=== PATIENT | female | born 1985 | race Caucasian/White ===

== ENCOUNTER 2017-01-21 09:14 | Emergency (ER) | payer OTHER ==
[2017-01-21] MEDS ORDERED: HYDROmorphone 1 MG/ML Syringe IVPUSH ONE (10:30)
[2017-01-21] MEDS ORDERED: Clindamycin Phosphate 600 MG in Sodium Chloride 0.9% 100 ML IV ONE (10:30)
[2017-01-21] MEDS ORDERED: Sodium Chloride 0.9% 10 ML Syringe FLUSH PRN (10:30)
[2017-01-21] MEDS ORDERED: Metoclopramide 10 MG/2 ML SDV IVPUSH ONE (10:31)
--- NOTE | 2017-01-21 10:35 | EDM.PDOC ---
ED HPI ENT - General Chief Complaint: ENT Problem Stated Complaint: FACIAL SWELLING AND PAIN NOT BETTER Time Seen by Provider: 01/21/17 10:15 Source of Information: Reports: Patient History Limitations: Reports: No limitations - History of Present Illness INITIAL COMMENTS - FREE TEXT/NARRATIVE: 31-year-old female presents the ED for reassessment of left kylah-facial swelling. She was seen to the ED yesterday and identified to be dental infection arising from her left upper canine tooth which is broken off even with the gingiva margin. She was given a shot of Rocephin intramuscularly and started on Pen-Vee K 4 times daily and is on Percocet tablets for pain relief. That finding the pain relief to be all that effective. She's taking 2 tablets every 6 hours with Motrin 600 mg every 6 hours as well. Left facial pain is perhaps a little worse today than it was yesterday. No associated fever or chills. Of course can't eat or chew on the left side. Symptom Onset Date: 01/18/17 Timing/Duration: Reports: Day(s):, Getting worse, Gradual onset Severity: moderate Location: Reports: mouth (pain left upper teeth mostly the canine teeth and swelling of the left kylah-face.) Quality: Reports: Same as previous episode Improves with: Reports: Medication (medication takes the edge off the pain) Worsens with: Reports: Other (22.) Associated Symptoms: Reports: no other symptoms, malaise, loss of appetite, other (right hemifacial pain.). 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 Denies : fever, chills, weight loss (hardly able to sleep last night due to the severity of a throbbing pain in her left face.) HEENT: Reports: Dental pain (left upper canine tooth.), Ear pain (left side) Respiratory: Reports: no symptoms Cardiovascular: Reports: No symptoms Endocrine: Reports: no symptoms GI/Abdominal: Reports: No symptoms : Reports: no symptoms Musculoskeletal: Reports: no symptoms Skin: Reports: no symptoms Neurological: Reports: no symptoms ED EXAM, ENT - Physical Exam Exam: See Below Exam Limited By: No limitations General Appearance: alert, mild distress, other (left kylah-face is erythematous and moderately swollen to her eye.) Eye Exam: bilateral eye: normal inspection, PERRL Ears: normal TMs Mouth/Throat: Dental pain (pain in infection and appears to be coming from the broken off canine tooth at the gingiva margin left upper. The gingiva around it are mildly swollen and erythematous. No purulent discharge appreciated note abscess noted.) Head: facial swelling (left kylah-facial swelling with erythema and marked tenderness. It is swollen from the lateral aspect of her nose to the edge of the mandible and almost up to her eye on the left side.) Neck: normal inspection, supple, non-tender, full range of motion. No: lymphadenopathy (L), lymphadenopathy (R) Respiratory/Chest: no respiratory distress, lungs clear, normal breath sounds, no accessory muscle use Cardiovascular: normal peripheral pulses, regular rate, rhythm, no edema, no murmur Course - Vital Signs Last Recorded V/S: Last Vital Signs Temp 35.9 C 01/21/17 09:33 Pulse 84 01/21/17 12:13 Resp 16 01/21/17 12:13 BP 128/80 01/21/17 12:13 Pulse Ox 98 01/21/17 12:13 - Orders/Labs/Meds Orders: Active Orders 24 hr Category Date Time Status Peripheral IV Care [RC] . DIRECTED Care 01/21/17 10:30 Active Ketorolac [Toradol] Med 01/21/17 10:45 Active 30 mg IVPUSH ONETIME Sodium Chloride 0.9% [Saline Flush] Med 01/21/17 10:30 Active 10 ml FLUSH ASDIRECTED PRN Peripheral IV Insertion Adult [OM.PC] Stat Oth 01/21/17 10:30 Ordered Medication Orders Ketorolac Tromethamine (Toradol) 30 mg IVPUSH ONETIME ANDRÉS Last Admin: 01/21/17 11:07 Dose: 30 mg Sodium Chloride (Saline Flush) 10 ml FLUSH ASDIRECTED PRN PRN Reason: Keep Vein Open Last Admin: 01/21/17 10:55 Dose: 10 ml Meds: Medications Generic Name Dose Route Start Last Admin Trade Name Freq PRN Reason Stop Dose Admin Ketorolac Tromethamine 30 mg 01/21/17 10:45 01/21/17 11:07 Toradol IVPUSH 30 mg ONETIME ANDRÉS Administration Sodium Chloride 10 ml 01/21/17 10:30 01/21/17 10:55 Saline Flush FLUSH 10 ml ASDIRECTED PRN Administration Keep Vein Open Discontinued Medications Generic Name Dose Route Start Last Admin Trade Name Freq PRN Reason Stop Dose Admin Hydromorphone HCl 1 mg 01/21/17 10:30 01/21/17 10:50 Dilaudid IVPUSH 01/21/17 10:31 1 mg ONETIME ONE Administration Clindamycin Phosphate 600 mg/ 104 mls @ 100 mls/hr 01/21/17 10:30 01/21/17 10 :54 Sodium Chloride IV 01/21/17 11:32 100 mls/hr ONETIME ONE Administration Metoclopramide HCl 10 mg 01/21/17 10:31 01/21/17 10:48 Reglan IVPUSH 01/21/17 10:32 10 mg ONETIME ONE Administration - Radiology Interpretation Free Text/Narrative:: 31-year-old female presents to the ED with a dental infection that has spread to her face. She was seen yesterday for similar occurrence. She reports it's no better in fact seems to be a bit worse. She did receive Rocephin 1 g intramuscularly and started on Pen-Vee K 4 times daily yesterday. Examination the source of infection appears to be broken off left I. and tooth which is broken off even with the gingiva margin. Plan on going to give her IV clindamycin 600 mg in the plan will be to clindamycin orally to her treatment plan with Pen-Vee K to bring this infection under control. We will also her pain medications so that she's taking Percocet about every 3-4 hours and Motrin every 6 hours. She's not getting much relief taking Percocet every 6 hours.she was prescribed 20 tablets yesterday. - Re-Assessments/Exams Free Text/Narrative Re-Assessment/Exam: 01/21/17 12:17patient has completed her IV clindamycin. Pain is much improved after IV Dilaudid and Toradol. She was given a prescription for clindamycin 300 mg 3 times a day for the next 7 days to add to her Pen-Vee K treatment. Percocet 10/ 325 mg tablets x12 were written for pain relief since she's not finding 5-25 mg tablets useful in terms of controlling the pain.she plans on following up with a dentist in [place] tomorrow. I suspect however that she didn' t will need referral to an oral surgeon since the tooth is broken off of the gingiva margin. Departure - Departure Time of Disposition: 11:48 Disposition: Home, Self-Care 01 Condition: fair Clinical Impression: Dental infection, Facial cellulitis Prescriptions: Clindamycin HCl 300 mg PO TID #21 capsule oxyCODONE HCl/Acetaminophen [Percocet 10-325 mg Tablet] 1 each PO BTNUNITS PRN # 12 tablet PRN Reason: dental pain relief Instructions: Dental Abscess, [id number], Cellulitis, Adult, [id number] Referrals: Ivana Huynh MD [Primary Care Provider] - Forms: ED Department Discharge Additional Instructions: reevaluation in the emergency room today in regards to dental infection with spread to the soft tissues of the left side of the face. We call this facial cellulitis. Upper tooth appears to be the left upper canine which is broken off even with the gingiva margin. Due to minimal response to intramuscular Rocephin yesterday and Pen-Vee K orally in the last 24 hours she were given clindamycin 600 mg intravenously today as well as further pain medication i.e. Dilaudid a milligram with Reglan 10 mg IV and Toradol 30 mg IV for pain relief. Treatment will now add clindamycin 300 mg antibiotic 3 times daily for the next 7 days to help clear up infection. Continue the Pen-Vee K as previously prescribed. Continue 600 mg of Motrin every 6 hours for pain and inflammation relief. Percocet 2 tablets every 3-4 hours as necessary for pain relief. I did also write a prescription for Percocet 10 325 mg tablets one tablet every 4 hours needed for pain relief.Followup with dentist within the next week to have the root of this tooth removed. This may well have to be done by oral surgeon in [place]. I would suggest you phone Dr. Monroy --face and jaw surgeon at . He to call tomorrow morning an appointment later this week looks like Sunday would be suitable to have the root of this tooth removed so that the infection cannot return. - My Orders Last 24 Hours: My Active Orders 01/21/17 10:30 Peripheral IV Care [RC] . DIRECTED Sodium Chloride 0.9% [Saline Flush] 10 ml FLUSH ASDIRECTED PRN Peripheral IV Insertion Adult [OM.PC] Stat 01/21/17 10:45 Ketorolac [Toradol] 30 mg IVPUSH ONETIME - Assessment/Plan Last 24 Hours: My Active Orders 01/21/17 10:30 Peripheral IV Care [RC] . DIRECTED Sodium Chloride 0.9% [Saline Flush] 10 ml FLUSH ASDIRECTED PRN Peripheral IV Insertion Adult [OM.PC] Stat 01/21/17 10:45 Ketorolac [Toradol] 30 mg IVPUSH ONETIME
[2017-01-21] MEDS ORDERED: Ketorolac 30 MG/ML SDV IVPUSH SCH (10:45)
[2017-01-21 12:15] VITALS: BP 128/80
== END 2017-01-21 12:00 | disposition home or self-care (01) ==
LOC: JD.ED 09:14
DX: K04.7 Periapical abscess without sinus (principal); L03.211 Cellulitis of face; F17.210 Nicotine dependence, cigarettes, uncomplicated; Z79.899 Other long term (current) drug therapy
CPT/HCPCS: 96365; 96375; 99283; J1170; J1885; J2765; J7030; J7050; 99284

== ENCOUNTER 2018-02-06 11:51 | Day surgery (SDC) | payer SELFPAY ==
[~2018-02-06 11:51] MED LIST: Sodium Chloride 0.9% 10 ML Syringe FLUSH PRN
[2018-02-06] MEDS ORDERED: Sodium Chloride 0.9% 50 ML SDV ONE (12:10)
[2018-02-06] MEDS: Lidocaine 1%/Sod Bicarbonate in NS 8.4% 1 ML Syringe IDERM PRN (12:14)
[2018-02-06] MEDS: Lactated Ringers 1,000 ML IV SCH (12:30)
[2018-02-06] MEDS ORDERED: Lidocaine 1% 50 ML MDV ONE (12:33)
--- NOTE | 2018-02-06 12:40 | PCM.PREANE ---
Preanesthetic Assessment - Procedure Proposed Procedure: Anoscopy with botox injection - Anesthesia/Transfusion/Family Hx Anesthesia History: Prior Anesthesia Without Reaction Family History of Anesthesia Reaction: No Transfusion History: No Prior Transfusion(s) - Review of Systems General: No Symptoms Pulmonary: No Symptoms Cardiovascular: No Symptoms Gastrointestinal: No Symptoms Neurological: No Symptoms Other: Reports: None - Physical Assessment NPO Status Date: 02/06/18 NPO Status Time: 02:00 Pulse: 87 O2 Sat by Pulse Oximetry: 97 Respiratory Rate: 16 Blood Pressure: 142/83 Temperature: 36.8 C Height: 1.55 m Weight: 121 kg ASA Class: 2 Mental Status: Alert & Oriented x3 Airway Class: Mallampati = 2 Dentition: Reports: Normal Dentition Thyro-Mental Finger Breadths: 3 Mouth Opening Finger Breadths: 3 ROM/Head Extension: Full Lungs: Clear to Auscultation, Normal Respiratory Effort Cardiovascular: Regular Rate, Regular Rhythm - Allergies Allergies/Adverse Reactions: Allergies Allergy/AdvReac Type Severity Reaction Status Date / Time No Known Allergies Allergy Verified 02/05/18 15:30 - Blood Blood Available: No Product(s) Available: None - Anesthesia Plan Pre-Op Medication Ordered: None - Acknowledgements Anesthesia Type Planned: MAC Pt an Appropriate Candidate for the Planned Anesthesia: Yes Alternatives and Risks of Anesthesia Discussed w Pt/Guardian: Yes Pt/Guardian Understands and Agrees with Anesthesia Plan: Yes PreAnesthesia Questionnaire HEENT History: Reports: Impaired Vision Cardiovascular History: Reports: None Respiratory History: Reports: None Gastrointestinal History: Reports: Hemorrhoids Genitourinary History: Reports: None 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 Other OB/BYN History: x 2 - d&c Musculoskeletal History: Reports: None Neurological History: Reports: None Psychiatric History: Reports: None Endocrine/Metabolic History: Reports: Diabetes, Gestational Hematologic History: Reports: None Immunologic History: Reports: None Oncologic (Cancer) History: Reports: None Dermatologic History: Reports: None - Past Surgical History Head Surgeries/Procedures: Reports: None Cardiovascular Surgical History: Reports: None Respiratory Surgical History: Reports: None GI Surgical History: Reports: Cholecystectomy Female Surgical History: Reports: Section, D&C Male Surgical History: Reports: None Endocrine Surgical History: Reports: None Neurological Surgical History: Reports: None Musculoskeletal Surgical History: Reports: None Oncologic Surgical History: Reports: None Dermatological Surgical History: Reports: None - SUBSTANCE USE Smoking Status *Q: Current Every Day Smoker Tobacco Use Within Last Twelve Months: Cigarettes Recreational Drug Use History: No - HOME MEDS Home Medications: Home Meds Acetaminophen [Tylenol] 650 mg PO Q4H PRN 02/05/18 [History] Ibuprofen 600 mg PO Q6H PRN 02/05/18 [History] - CURRENT (IN HOUSE) MEDS Current Meds: Current Medications Botulinum Toxin Type A (Botox) 100 units .XX ONETIME ANDRÉS Stop: 02/06/18 13:00 Lactated Ringer's (Ringers, Lactated) 1,000 mls @ 125 mls/hr IV ASDIRECTED ANDRÉS Lidocaine/Sodium Bicarbonate (Buffered Lidocaine 1% In Ns 8.4%) 0.25 ml IDERM ONETIME PRN PRN Reason: Prior to IV Start Sodium Chloride (Saline Flush) 10 ml FLUSH ASDIRECTED PRN PRN Reason: Keep Vein Open Discontinued Medications Fentanyl (Sublimaze) Confirm Administered Dose 100 mcg .ROUTE .STK-MED ONE Stop: 02/06/18 12:44 Lidocaine HCl (Xylocaine-Mpf 1%) Confirm Administered Dose 4 mls @ as directed .ROUTE .STK-MED ONE Stop: 02/06/18 12:46 Midazolam HCl (Versed 1 Mg/Ml) Confirm Administered Dose 2 mg .ROUTE .STK-MED ONE Stop: 02/06/18 12:44 Propofol (Diprivan 20 Ml) Confirm Administered Dose 200 mg .ROUTE .STK-MED ONE Stop: 02/06/18 12:44 Sodium Chloride (Normal Saline) Confirm Administered Dose 50 ml .ROUTE .STK-MED ONE Stop: 02/06/18 12:11
[2018-02-06] MEDS ORDERED: Midazolam 1 MG/ML 2 ML SDV ONE (12:43)
[2018-02-06] MEDS ORDERED: fentaNYL 100 MCG/2 ML SDV ONE (12:43)
[2018-02-06] MEDS ORDERED: Propofol 200 MG/20 ML SDV ONE (12:43)
[2018-02-06] MEDS ORDERED: Lidocaine 1% 4 ML ONE (12:45)
[2018-02-06] MEDS: Bupivacaine 0.5% 30 ML SDV ONE (13:02)
--- NOTE | 2018-02-06 13:22 | PCM48HPAN ---
Post Anesthesia Note - EVALUATION WITHIN 48HRS OF ANESTHETIC Vital Signs in Normal Range: Yes Patient Participated in Evaluation: Yes Respiratory Function Stable: Yes Airway Patent: Yes Cardiovascular Function Stable: Yes Hydration Status Stable: Yes Pain Control Satisfactory: Yes Nausea and Vomiting Control Satisfactory: Yes Mental Status Recovered: Yes Pulse Rate: 89 SaO2: 97 Resp Rate: 16 Temperature: 36.8 C Blood Pressure: 133/89
--- NOTE | 2018-02-06 13:23 | PCM.OPNOTE ---
- General Post-Op/Procedure Note Date of Surgery/Procedure: 02/06/18 Operative Procedure(s): 1. Diagnostic anoscopy. 2. Botox injection Findings: Deep posterior anal fissure Anterior anal tag No hemorrhoids Pre Op Diagnosis: Painful defecation with rectal bleeding Post-Op Diagnosis: Chronic posterior anal fissure Anesthesia Technique: Local, MAC, Moderate Sedation Primary Surgeon: Freedom Kelly Pathology: None EBL in mLs: 0 Complications: None Condition: Good Free Text/Narrative:: After adequate IV sedation and analgesia with monitoring the patient was placed in the prone jackknife position with her buttocks taped. The perianal region was prepped with Betadine and then draped with paper drapes. 10 mL of Sensorcaine was infused into the perianal skin. Digital rectal examination revealed a spastic internal sphincter. Anoscopy revealed the deep posterior anal fissure through the muscle. There were no significant hemorrhoids seen on anoscopy. There was no anterior fissure. There was a small anterior anal tag. 40 units of Botox was injected into the left lateral aspect of the internal sphincter. Another 40 units was injected into the right lateral aspect. Hemostasis was obtained with direct pressure. There were no complications.
[2018-02-06 14:07] VITALS: BP 145/68
== END 2018-02-06 14:05 | disposition home or self-care (01) ==
LOC: JD.SDS 11:51
PROVIDERS: ATTEND Surgery
DX: K60.1 Chronic anal fissure (principal); K64.4 Residual hemorrhoidal skin tags; N91.1 Secondary amenorrhea; F17.210 Nicotine dependence, cigarettes, uncomplicated
CPT/HCPCS: 46505; 81025; J0585; J2250; J3010; J7120; 00902; J2704

== ENCOUNTER 2018-05-06 19:51 | Emergency (ER) | payer MEDICAID ==
[2018-05-06 20:09] VITALS: BP 143/92
[2018-05-06] MEDS ORDERED: Sodium Chloride 0.9% 10 ML Syringe FLUSH PRN (20:28)
[2018-05-06] MEDS ORDERED: Ondansetron 4 MG/2 ML SDV IVPUSH ONE (20:28)
[2018-05-06] MEDS ORDERED: Sodium Chloride 0.9% 1,000 ML IV STA (20:28)
[2018-05-06] MEDS ORDERED: HYDROmorphone 0.5 MG/0.5 ML SYRINGE IVPUSH ONE ×2 (20:30→22:06)
--- NOTE | 2018-05-06 20:46 | EDM.PDOC ---
ED HPI GENERAL MEDICAL PROBLEM - General Chief Complaint: Abdominal Pain Stated Complaint: BACK AND ABDOMINAL PAIN Time Seen by Provider: 05/06/18 20:10 Source of Information: Reports: Patient History Limitations: Reports: No Limitations - History of Present Illness INITIAL COMMENTS - FREE TEXT/NARRATIVE: The patient presents with abdominal pain that radiates to the back. This pain has been going on for over a month. She has seen her doctor. She had an US of her pelvis and a CT. The CT showed a 4cm adrenal mass on the left. She is scheduled for an MRI in 2 days. She has way more pain now. When I went into the room her pain was more on the right lower quadrant. She said this pain radiated to her right back. She had nausea but no vomiting. She has no fever but she has chills. She has no dysuria or hematuria. She has never had kidney stones before. She said the pain before today would never go away but it would get better and then worse again. She was at the gym today walking and that made it worse and she went on the bike and that made it even worse. She says that eating makes it worse. She does not have a gallbladder. That was removed a few years ago. She still has an appendix. Onset: Gradual Duration: Week(s): (4) Location: Reports: Abdomen, Back Quality: Reports: Sharp Severity: Severe Improves with: Reports: None Worsens with: Reports: None Associated Symptoms: Reports: Nausea/Vomiting. Denies: Chest Pain, Cough, Fever /Chills, Headaches, Shortness of Breath Abdomen Pain Score (Numeric/FACES): 7 - Related Data Allergies Allergy/AdvReac Type Severity Reaction Status Date / Time No Known Allergies Allergy Verified 05/06/18 20:09 Home Meds: Home Meds Acetaminophen [Tylenol] 650 mg PO Q4H PRN 02/05/18 [History] Ibuprofen 600 mg PO Q6H PRN 02/05/18 [History] metFORMIN [Glucophage XR] 1 tab PO DAILY 05/06/18 [History] Past Medical History HEENT History: Reports: Impaired Vision Cardiovascular History: Reports: None Respiratory History: Reports: None Gastrointestinal History: Reports: Hemorrhoids Genitourinary History: Reports: None RADIOGRAPHER ANGIOGRAM History: Reports: Spontaneous Other OB/BYN History: x 2 - d&c Musculoskeletal History: Reports: None Neurological History: Reports: None Psychiatric History: Reports: None Endocrine/Metabolic History: Reports: Diabetes, Gestational, Diabetes, Type II Hematologic History: Reports: None Immunologic History: Reports: None Oncologic (Cancer) History: Reports: None Dermatologic History: Reports: None - Past Surgical History Head Surgeries/Procedures: Reports: None Cardiovascular Surgical History: Reports: None Respiratory Surgical History: Reports: None GI Surgical History: Reports: Cholecystectomy Female Surgical History: Reports: Section, D&C Endocrine Surgical History: Reports: None Neurological Surgical History: Reports: None Musculoskeletal Surgical History: Reports: None Oncologic Surgical History: Reports: None Dermatological Surgical History: Reports: None Social & Family History - Family History Family Medical History: Noncontributory - Tobacco Use Smoking Status *Q: Current Every Day Smoker Years of Tobacco use: 15 Packs/Tins Daily: 1 - Caffeine Use Caffeine Use: Reports: Soda - Recreational Drug Use Recreational Drug Use: No ED ROS GENERAL - Review of Systems Review Of Systems: See Below Constitutional: Reports: No Symptoms HEENT: Reports: No Symptoms Respiratory: Reports: No Symptoms Cardiovascular: Reports: No Symptoms Endocrine: Reports: No Symptoms GI/Abdominal: Reports: Abdominal Pain, Nausea, Vomiting. Denies: Diarrhea : Reports: No Symptoms Musculoskeletal: Reports: Back Pain Skin: Reports: No Symptoms ED EXAM, GI/ABD - Physical Exam Exam: See Below Exam Limited By: No Limitations General Appearance: Alert, No Apparent Distress Ears: Normal External Exam Nose: Normal Inspection Head: Atraumatic, Normocephalic Neck: Normal Inspection Respiratory/Chest: No Respiratory Distress, Lungs Clear, Normal Breath Sounds Cardiovascular: Regular Rate, Rhythm, No Edema, No Murmur GI/Abdominal Exam: Soft, No Organomegaly, No Mass, Tender (Moderate to the right lower abdomen) Back Exam: Other (Tenderness to the right flank area) Extremities: Normal Inspection Course - Vital Signs Last Recorded V/S: Last Vital Signs Temp 98 F 05/06/18 20:07 Pulse 96 05/06/18 20:07 Resp 16 05/06/18 20:07 BP 143/92 H 05/06/18 20:07 Pulse Ox 98 05/06/18 20:07 - Orders/Labs/Meds Orders: Active Orders 24 hr Category Date Time Status Peripheral IV Care [RC] . DIRECTED Care 05/06/18 20:29 Active Abdomen Pelvis w Cont [CT] Stat Exams 05/06/18 21:36 Taken Abdomen Series w Chest 1V [CR] Stat Exams 05/06/18 20:28 Stop Req UA W/MICROSCOPIC [URIN] Stat Lab 05/06/18 20:50 Ordered Sodium Chloride 0.9% [Saline Flush] Med 05/06/18 20:28 Active 10 ml FLUSH ASDIRECTED PRN ED Antiemetic Medication Reflex [OM.PC] Stat Oth 05/06/18 20:29 Ordered Peripheral IV Insertion Adult [OM.PC] Stat Oth 05/06/18 20:28 Ordered Medication Orders Sodium Chloride (Saline Flush) 10 ml FLUSH ASDIRECTED PRN PRN Reason: Keep Vein Open Last Admin: 05/06/18 20:49 Dose: 10 ml Labs: Laboratory Tests 05/06/18 05/06/18 05/06/18 Range/Units 20:35 20:35 20:35 WBC 15.23 H (3.98-10.04) K/mm3 RBC 4.97 (3.98-5.22) M/mm3 Hgb 14.1 (11.2-15.7) gm/L Hct 41.7 (34.1-44.9) % MCV 83.9 (79.4-94.8) fl MCH 28.4 (25.6-32.2) pg MCHC 33.8 (32.2-35.5) g/dl RDW Std Deviation 40.2 (36.4-46.3) fL Plt Count 345 (182-369) K/mm3 MPV 9.1 L (9.4-12.3) fl Neut % (Auto) 67.8 (34.0-71.1) % Lymph % (Auto) 23.5 (19.3-51.7) % Loving % (Auto) 5.3 (4.7-12.5) % Eos % (Auto) 3.0 (0.7-5.8) Baso % (Auto) 0.3 (0.1-1.2) % Neut # (Auto) 10.33 H (1.56-6.13) K/mm3 Lymph # (Auto) 3.58 (1.18-3.74) K/mm3 Loving # (Auto) 0.81 H (0.24-0.36) K/mm3 Eos # (Auto) 0.45 H (0.04-0.36) K/mm3 Baso # (Auto) 0.04 (0.01-0.08) K/mm3 Manual Slide Review Normal smear Sodium 140 (136-145) mEq/L Potassium 4.0 (3.5-5.1) mEq/L Chloride 104 (98-107) mEq/L Carbon Dioxide 22 (21-32) mEq/L Anion Gap 18.0 H (5-15) BUN 14 (7-18) mg/dL Creatinine 0.9 (0.55-1.02) mg/dL Est Cr Clr Drug Dosing 68.34 mL/min Estimated GFR (MDRD) > 60 (>60) mL/min BUN/Creatinine Ratio 15.6 (14-18) Glucose 159 H (74-106) mg/dL Calcium 9.3 (8.5-10.1) mg/dL Total Bilirubin 0.5 (0.2-1.0) mg/dL AST 18 (15-37) U/L ALT 38 (14-59) U/L Alkaline Phosphatase 64 (46-116) U/L Total Protein 7.8 (6.4-8.2) g/dl Albumin 3.8 (3.4-5.0) g/dl Globulin 4.0 gm/dL Albumin/Globulin Ratio 1.0 (1-2) Lipase 119 (73-393) U/L HCG, Qual Negative (NEGATIVE) Urine Color (Yellow) Urine Appearance (Clear) Urine pH (5.0-8.0) Ur Specific [place] (1.005-1.030) Urine Protein (Negative) Urine Glucose (UA) (Negative) Urine Ketones (Negative) Urine Occult Blood (Negative) Urine Nitrite (Negative) Urine Bilirubin (Negative) Urine Urobilinogen (0.2-1.0) Ur Leukocyte Esterase (Negative) Urine RBC (0-5) /hpf Urine WBC (0-5) /hpf Ur Epithelial Cells (0-5) /hpf Urine Bacteria (FEW) /hpf Urine Mucus (FEW) /hpf 05/06/18 Range/Units 20:50 WBC (3.98-10.04) K/mm3 RBC (3.98-5.22) M/mm3 Hgb (11.2-15.7) gm/L Hct (34.1-44.9) % MCV (79.4-94.8) fl MCH (25.6-32.2) pg MCHC (32.2-35.5) g/dl RDW Std Deviation (36.4-46.3) fL Plt Count (182-369) K/mm3 MPV (9.4-12.3) fl Neut % (Auto) (34.0-71.1) % Lymph % (Auto) (19.3-51.7) % Loving % (Auto) (4.7-12.5) % Eos % (Auto) (0.7-5.8) Baso % (Auto) (0.1-1.2) % Neut # (Auto) (1.56-6.13) K/mm3 Lymph # (Auto) (1.18-3.74) K/mm3 Loving # (Auto) (0.24-0.36) K/mm3 Eos # (Auto) (0.04-0.36) K/mm3 Baso # (Auto) (0.01-0.08) K/mm3 Manual Slide Review Sodium (136-145) mEq/L Potassium (3.5-5.1) mEq/L Chloride (98-107) mEq/L Carbon Dioxide (21-32) mEq/L Anion Gap (5-15) BUN (7-18) mg/dL Creatinine (0.55-1.02) mg/dL Est Cr Clr Drug Dosing mL/min Estimated GFR (MDRD) (>60) mL/min BUN/Creatinine Ratio (14-18) Glucose (74-106) mg/dL Calcium (8.5-10.1) mg/dL Total Bilirubin (0.2-1.0) mg/dL AST (15-37) U/L ALT (14-59) U/L Alkaline Phosphatase (46-116) U/L Total Protein (6.4-8.2) g/dl Albumin (3.4-5.0) g/dl Globulin gm/dL Albumin/Globulin Ratio (1-2) Lipase (73-393) U/L HCG, Qual (NEGATIVE) Urine Color Light yellow (Yellow) Urine Appearance Clear (Clear) Urine pH 6.0 (5.0-8.0) Ur Specific [place] 1.020 (1.005-1.030) Urine Protein Negative (Negative) Urine Glucose (UA) Negative (Negative) Urine Ketones Negative (Negative) Urine Occult Blood Negative (Negative) Urine Nitrite Negative (Negative) Urine Bilirubin Negative (Negative) Urine Urobilinogen 0.2 (0.2-1.0) Ur Leukocyte Esterase Negative (Negative) Urine RBC 0-5 (0-5) /hpf Urine WBC 0-5 (0-5) /hpf Ur Epithelial Cells 5-10 H (0-5) /hpf Urine Bacteria Few (FEW) /hpf Urine Mucus Not seen (FEW) /hpf Meds: Medications Generic Name Dose Route Start Last Admin Trade Name Freq PRN Reason Stop Dose Admin Sodium Chloride 10 ml 05/06/18 20:28 05/06/18 20:49 Saline Flush FLUSH 10 ml ASDIRECTED PRN Administration Keep Vein Open Discontinued Medications Generic Name Dose Route Start Last Admin Trade Name Freq PRN Reason Stop Dose Admin Hydromorphone HCl 0.5 mg 05/06/18 20:30 05/06/18 20:50 Dilaudid IVPUSH 05/06/18 20:31 0.5 mg ONETIME ONE Administration Hydromorphone HCl 0.5 mg 05/06/18 22:06 05/06/18 22:10 Dilaudid IVPUSH 05/06/18 22:07 0.5 mg ONETIME ONE Administration Hydromorphone HCl 0.5 mg 05/07/18 00:08 05/07/18 00:14 Dilaudid IVPUSH 05/07/18 00:09 0.5 mg ONETIME ONE Administration Sodium Chloride 1,000 mls @ 1,000 mls/hr 05/06/18 20:28 05/06/18 20:49 Normal Saline IV 05/06/18 21:27 1,000 mls/hr .BOLUS STA Administration Ondansetron HCl 4 mg 05/06/18 20:28 05/06/18 20:49 Zofran IVPUSH 05/06/18 20:29 4 mg ONETIME ONE Administration Ondansetron HCl 4 mg 05/07/18 00:08 05/07/18 00:13 Zofran IVPUSH 05/07/18 00:09 4 mg ONETIME ONE Administration - Re-Assessments/Exams Free Text/Narrative Re-Assessment/Exam: 05/06/18 22:17 I ordered an IV NS 1L bolus, zofran 4mg IV, dilaudid 0.5mg IV, labs, UA and an abdominal x-ray with chest. 05/06/18 22:18 Her WBC is elevated at 15.23. Her anion gap is elevated at 18. Her glucose is elevated at 159. His HCG is negative. His lipase is negative. His UA shows no UTI. She still has pain. Her WBC is elevated and she has more pain to the right lower abdomen. I do not want to but I feel I have to do a CT again. I talked to the patient about the risks of having another CT. There is more radiation exposure. There is no way for us to get an MRI tonight or even tomorrow. She was in agreement to have the CT done. 05/07/18 00:[address] shows diffuse hepatic steatosis and hepatomegaly. No focal hepatic lesion. Unchanged indeterminate 3.9cm left adrenal mass. This deomonstrates significant contrast washout on the 5-minute delayed images. It likely represents an adenoma, however, a further assessment is recommended with a formal adrenal CT or MRI protocol. Inadequate evaluation of the urinary bladder due to nondistention. Question of a urachal diverticulum. Two left lower lobe pulmonary nodules measuring 6mm. She does smoke so she will need a repeat CT in 6 to 12 months. There was nothing seen on CT that would explain her pain. I will discharge her home with something for pain and follow up with Dr Sheets and get an MRI. Departure - Departure Time of Disposition: 00:45 Disposition: Home, Self-Care 01 Condition: Good Clinical Impression: Abdominal pain Qualifiers: Abdominal location: right lower quadrant Qualified Code(s): R10.31 - Right lower quadrant pain Nausea & vomiting Qualifiers: Vomiting type: unspecified Vomiting Intractability: non-intractable Qualified Code(s): R11.2 - Nausea with vomiting, unspecified - Discharge Information Referrals: Stefany Irvin MD [Primary Care Provider] - Forms: ED Department Discharge Additional Instructions: Keep the appointments. Take the zofran as needed for nausea and vomiting. Take the hydrocodone as needed for pain. Please return if you are worse. - My Orders Last 24 Hours: My Active Orders 05/06/18 20:28 Abdomen Series w Chest 1V [CR] Stat Sodium Chloride 0.9% [Saline Flush] 10 ml FLUSH ASDIRECTED PRN Peripheral IV Insertion Adult [OM.PC] Stat 05/06/18 20:29 Peripheral IV Care [RC] . DIRECTED ED Antiemetic Medication Reflex [OM.PC] Stat 05/06/18 20:50 UA W/MICROSCOPIC [URIN] Stat 05/06/18 21:36 Abdomen Pelvis w Cont [CT] Stat - Assessment/Plan Last 24 Hours: My Active Orders 05/06/18 20:28 Abdomen Series w Chest 1V [CR] Stat Sodium Chloride 0.9% [Saline Flush] 10 ml FLUSH ASDIRECTED PRN Peripheral IV Insertion Adult [OM.PC] Stat 05/06/18 20:29 Peripheral IV Care [RC] . DIRECTED ED Antiemetic Medication Reflex [OM.PC] Stat 05/06/18 20:50 UA W/MICROSCOPIC [URIN] Stat 05/06/18 21:36 Abdomen Pelvis w Cont [CT] Stat
[2018-05-07] MEDS ORDERED: HYDROmorphone 0.5 MG/0.5 ML SYRINGE IVPUSH ONE (00:08)
[2018-05-07] MEDS ORDERED: Ondansetron 4 MG/2 ML SDV IVPUSH ONE (00:08)
--- NOTE | 2018-05-07 08:45 | CT ---
CT abdomen and pelvis Technique: Multiple axial sections were obtained from below the dome of the diaphragm inferiorly through the pubic symphysis. Intravenous and oral contrast was utilized. Delayed images were obtained from above the dome of the diaphragm inferiorly through the pubic symphysis. Comparison: Prior abdominal and pelvic CT exam of 04/30/18. Findings: Two small subpleural nodules are noted within left lung base. These are stable from prior CT exam. Liver shows diffuse fatty infiltration. No focal abnormality is seen within the liver. Spleen appears within normal limits. Left adrenal mass is noted. This measures about 4.0 cm in size and is stable from most recent exam. Kidneys show symmetric contrast enhancement without hydronephrosis or mass. Delayed images show contrast within the ureters and bladder with no urinary obstruction. Pancreas appears normal. Surgical clips are seen from prior cholecystectomy. Aorta shows no aneurysmal dilatation. No retroperitoneal adenopathy is seen. No pelvic mass or adenopathy is identified. On the sagittal images there is a small linear structure off the superior bladder felt to represent an incidental urachal remnant. No free fluid or inflammatory change is seen. Appendix is seen which appears to be normal. No abdominal wall or femoral hernia is seen. Bone window settings were reviewed which appear within normal limits for the patient's age. Impression: 1. Left adrenal mass. As mentioned previous, MRI could be considered to further evaluate for adrenal adenoma. 2. Two small nodules within the left lung base. As mentioned previously if patient is not a smoker these can be ignored and if patient is a smoker, recommend repeat study in one year. 3. Fatty infiltration within the liver. 4. No abdominal wall hernia or femoral hernia is seen. 5. Other findings which are felt to be incidental as described above. Diagnostic code #3 Agree with preliminary report issued by [employer] ([facility] preliminary report dictated on 05/07/18, 01:28 AM Central Time)
== END 2018-05-07 00:55 | disposition home or self-care (01) ==
LOC: JD.ED 19:51
DX: R10.31 Right lower quadrant pain (principal); R11.2 Nausea with vomiting, unspecified; E11.9 Type 2 diabetes mellitus without complications; F17.210 Nicotine dependence, cigarettes, uncomplicated
CPT/HCPCS: 36415; 74177; 80053; 81001; 83690; 84703; 85025; 96361; 96374; 96375; 96376; 99284; J1170; J2405; J7040; J7050

== ENCOUNTER 2018-08-16 14:55 | Emergency (ER) | payer BC, MEDICAID ==
[2018-08-16 15:37] VITALS: BP 140/90
--- NOTE | 2018-08-16 16:04 | EDM.PDOC ---
ED HPI GENERAL MEDICAL PROBLEM - General Chief Complaint: ENT Problem Stated Complaint: DENTAL PAIN Time Seen by Provider: 08/16/18 15:35 Source of Information: Reports: Patient, RN Notes Reviewed - History of Present Illness INITIAL COMMENTS - FREE TEXT/NARRATIVE: [age] female in with dental pain. She states her left lower front molar has given her trouble off and on for quite a long time but has become much more painful over the last 2 days. Site was hard, difficult to sleep and continues with severe pain today. She has noticed that her left jaw is mildly swollen. No fever or chills. Also "while she is here she has a lump near her rectum that she would like to have examined, does not know what that is". She has had occasional hemorrhoid problems in the past very occasional but no current bleeding. Left Lower Tooth/Teeth Pain Score (Numeric/FACES): 10 - Related Data Allergies Allergy/AdvReac Type Severity Reaction Status Date / Time No Known Allergies Allergy Verified 05/06/18 20:09 Home Meds: Home Meds Acetaminophen [Tylenol] 650 mg PO Q4H PRN 02/05/18 [History] Ibuprofen 600 mg PO Q6H PRN 02/05/18 [History] metFORMIN [Glucophage XR] 500 tab PO BID 05/06/18 [History] Acetaminophen/HYDROcodone [[place] 325-5 MG] 1 tab PO Q6H PRN #14 tablet 08/16/18 [Rx] Levonorgestrel-Ethin Estradiol [Levonor-Eth Estrad 0.15-0.03] 1 tab PO DAILY [History] Ondansetron [Zofran ODT] 4 mg PO Q6H PRN #7 tab.dis 08/16/18 [Rx] atorvaSTATin Calcium [Lipitor] 20 mg PO BEDTIME 08/16/18 [History] Past Medical History HEENT History: Reports: Impaired Vision Cardiovascular History: Reports: None Respiratory History: Reports: None Gastrointestinal History: Reports: Hemorrhoids Genitourinary History: Reports: None SUPPORT SERVICES REP History: Reports: Spontaneous Other SUPPORT SERVICES REP History: x 2 - d&c Musculoskeletal History: Reports: None Neurological History: Reports: None Psychiatric History: Reports: None Endocrine/Metabolic History: Reports: Diabetes, Gestational, Diabetes, Type II, Other (See Below) Other Endocrine/Metabolic History: 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 Hematologic History: Reports: None Immunologic History: Reports: None Oncologic (Cancer) History: Reports: None Dermatologic History: Reports: None - Past Surgical History Head Surgeries/Procedures: Reports: None Cardiovascular Surgical History: Reports: None Respiratory Surgical History: Reports: None GI Surgical History: Reports: Cholecystectomy Female Surgical History: Reports: Section, D&C Endocrine Surgical History: Reports: None Neurological Surgical History: Reports: None Musculoskeletal Surgical History: Reports: None Oncologic Surgical History: Reports: None Dermatological Surgical History: Reports: None Social & Family History - Family History Family Medical History: Noncontributory - Tobacco Use Smoking Status *Q: Current Every Day Smoker Years of Tobacco use: 11 Packs/Tins Daily: 1 - Caffeine Use Caffeine Use: Reports: Coffee, Soda - Recreational Drug Use Recreational Drug Use: No ED ROS ENT - Review of Systems Review Of Systems: See Below Constitutional: Denies: Fever, Chills HEENT: Reports: Dental Pain Respiratory: Denies: Shortness of Breath GI/Abdominal: Reports: Other (He'll see her as a lump near her rectum). Denies : Abdominal Pain, Nausea, Vomiting Musculoskeletal: Reports: No Symptoms Neurological: Reports: Headache (Mild) ED EXAM, ENT - Physical Exam Exam: See Below General Appearance: Alert, Moderate Distress Mouth/Throat: Dental Pain (There is tenderness of the left lower front molar with some gum disease present but no visible swelling, no drainage) Head: Facial Swelling (Mild swelling left jaw), Facial Tenderness (Left jaw) Neck: Supple. No: Lymphadenopathy (L), Lymphadenopathy (R) Respiratory/Chest: No Respiratory Distress, Lungs Clear, Normal Breath Sounds Rectal (Female) Exam: Other (Vital can perirectal area examined with nurse present, one small visible hemorrhoid, no unusual mass or tenderness visible) Neurological: Alert, No Motor/Sensory Deficits Skin: Warm, Dry, No Rash Course - Vital Signs Last Recorded V/S: Last Vital Signs Temp 96.9 F 08/16/18 15:36 Pulse 111 H 08/16/18 15:36 Resp 20 08/16/18 15:36 BP 140/90 08/16/18 15:36 Pulse Ox 96 08/16/18 15:36 Departure - Departure Time of Disposition: 15:59 Disposition: Home, Self-Care 01 Preliminary Cause of *Q: Sepsis & Multi System Organ Failure Condition: Fair Clinical Impression: Pain, dental - Discharge Information Prescriptions: Acetaminophen/HYDROcodone [[place]mart 325-5 MG] 1 tab PO Q6H PRN #14 tablet PRN Reason: Pain Ondansetron [Zofran ODT] 4 mg PO Q6H PRN #7 tab.dis PRN Reason: Nausea/Vomiting Referrals: Stefany Irvin MD [Primary Care Provider] - Forms: ED Department Discharge Additional Instructions: Amoxicillin 1000 mg twice daily 1 week or until gone, Zofran if needed for any further nausea or vomiting, Tylenol for mild to moderate discomfort or hydrocodone if needed for more severe pain, do not take Tylenol and hydrocodone at the same time, do not drive or work when taking hydrocodone. See dentist early next week as soon as possible.
== END 2018-08-16 16:35 | disposition home or self-care (01) ==
LOC: JD.ED 14:55
DX: K08.89 Other specified disorders of teeth and supporting structures (principal); F17.210 Nicotine dependence, cigarettes, uncomplicated; E11.9 Type 2 diabetes mellitus without complications; Z79.84 Long term (current) use of oral hypoglycemic drugs; Z79.899 Other long term (current) drug therapy
CPT/HCPCS: 99282; 99283

== ENCOUNTER 2019-01-25 19:52 | Emergency (ER) | payer BC, MEDICAID ==
[2019-01-25 20:17] VITALS: BP 150/95
[2019-01-25] MEDS ORDERED: Ketorolac 30 MG/ML SDV IM ONE (21:00)
[2019-01-25] MEDS ORDERED: Amoxicillin/Clavulanate K 875-125 MG Tab PO ONE (21:00)
[2019-01-25] MEDS ORDERED: Acetaminophen 325 MG Tab PO ONE (21:08)
--- NOTE | 2019-01-25 21:13 | EDM.PDOC ---
ED HPI GENERAL MEDICAL PROBLEM - General Chief Complaint: ENT Problem Stated Complaint: TOOTH PAIN Time Seen by Provider: 01/25/19 20:43 Source of Information: Reports: Patient, Old Records, RN Notes Reviewed History Limitations: Reports: No Limitations - History of Present Illness INITIAL COMMENTS - FREE TEXT/NARRATIVE: Patient is a 33-year-old female who presents to the ED for tooth pain. He states this is on her lower jaw on the left towards the back of her jaw. She states that this pain started and she was trying to take some ibuprofen and leftover pain medications from a previous dental visit but this has not provided her much relief. She states that there has been increased swelling, difficulty chewing due to pain, and difficulty swallowing due to pain , and fever/chills. She notes that she has had work done on this tooth previously. 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: x 2 - d&c Musculoskeletal History: Reports: None Neurological History: Reports: None Psychiatric History: Reports: None Endocrine/Metabolic History: Reports: Diabetes, Gestational, Diabetes, Type II, Other (See Below) Other Endocrine/Metabolic History: 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 Hematologic History: Reports: None Immunologic History: Reports: None Oncologic (Cancer) History: Reports: None Dermatologic History: Reports: None - Past Surgical History Head Surgeries/Procedures: Reports: None Cardiovascular Surgical History: Reports: None Respiratory Surgical History: Reports: None GI Surgical History: Reports: Cholecystectomy Female Surgical History: Reports: Section, D&C Endocrine Surgical History: Reports: None Neurological Surgical History: Reports: None Musculoskeletal Surgical History: Reports: None Oncologic Surgical History: Reports: None Dermatological Surgical History: Reports: None Social & Family History - Family History Family Medical History: Noncontributory - Tobacco Use Smoking Status *Q: Current Every Day Smoker Years of Tobacco use: 12 Packs/Tins Daily: 1 - Caffeine Use Caffeine Use: Reports: Coffee, Soda - Recreational Drug Use Recreational Drug Use: No ED ROS ENT - Review of Systems Review Of Systems: See Below Constitutional: Reports: Fever, Chills. Denies: Malaise, Decreased Appetite, Weight Loss HEENT: Reports: Throat Pain (Due to tooth pain) Respiratory: Reports: No Symptoms Cardiovascular: Reports: No Symptoms Endocrine: Reports: No Symptoms GI/Abdominal: Reports: No Symptoms : Reports: No Symptoms Musculoskeletal: Reports: No Symptoms Skin: Reports: No Symptoms Neurological: Reports: No Symptoms Psychiatric: Reports: No Symptoms Hematologic/Lymphatic: Reports: No Symptoms Immunologic: Reports: No Symptoms ED EXAM, ENT - Physical Exam Exam: See Below Exam Limited By: No Limitations General Appearance: Alert, WD/WN, No Apparent Distress Eye Exam: Bilateral Eye: Normal Inspection Ears: Normal External Exam, Normal Canal, Normal TMs Nose: Normal Inspection, Normal Mucousa Mouth/Throat: Normal Inspection, Normal Oropharynx, Normal Teeth, Dental Abcess (Redness and swelling noted to left lower posterior jaw), Dental Pain (Pain to lower molars.), Gum Swelling. No: Oral Ulcers, Pharyngeal Erythema, Tonsillar Erythema, Tonsillar Exudates, Trismus Head: Atraumatic, Normocephalic Neck: Normal Inspection, Supple, Tender Lateral (Mainly on left side anteriorly) . No: Lymphadenopathy (L), Lymphadenopathy (R) Respiratory/Chest: No Respiratory Distress, Lungs Clear, Normal Breath Sounds, No Accessory Muscle Use, Chest Non-Tender Cardiovascular: Normal Peripheral Pulses, Regular Rate, Rhythm, No Murmur GI/Abdominal: Normal Bowel Sounds, Soft, Non-Tender, No Distention, No Mass Extremities: Normal Inspection, Normal Capillary Refill Neurological: Alert, Oriented, Normal Cognition, No Motor/Sensory Deficits Psychiatric: Normal Affect, Normal Mood Skin: Warm, Dry, Intact, Normal Color, No Rash Course - Vital Signs Last Recorded V/S: Last Vital Signs Temp 102 F H 01/25/19 20:15 Pulse 122 H 01/25/19 20:15 Resp 16 01/25/19 20:15 BP 150/95 H 01/25/19 20:15 Pulse Ox 98 01/25/19 20:15 - Orders/Labs/Meds Meds: Medications Discontinued Medications Generic Name Dose Route Start Last Admin Trade Name Chayo PRN Reason Stop Dose Admin Amoxicillin/Clavulanate Potassium 1 tab 01/25/19 21:00 Augmentin 875 Mg/125 Mg PO 01/25/19 21:01 ONETIME ONE Ketorolac Tromethamine 30 mg 01/25/19 21:00 Toradol IM 01/25/19 21:01 ONETIME ONE - Re-Assessments/Exams Free Text/Narrative Re-Assessment/Exam: 01/25/19 21:11 Patient presents to the ED for the evaluation of tooth pain. One tablet of Augmentin has been ordered, 30 mg IM Toradol has been ordered for pain relief, 1 tab of Tylenol will be given for fever relief. Pain medication was discussed with the patient. Although she appears to be in quite a bit of pain I do not feel is appropriate to be prescribing her opioids for a dental abscess. 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 I will advise her to use Tylenol/ibuprofen/Aleve for further pain relief. Departure - Departure Time of Disposition: 21:13 Disposition: Home, Self-Care 01 Condition: Fair Clinical Impression: Dental abscess - Discharge Information *PRESCRIPTION DRUG MONITORING PROGRAM REVIEWED*: No *COPY OF PRESCRIPTION DRUG MONITORING REPORT IN PATIENT EMA: No Instructions: Dental Abscess, [id number] Referrals: Stefany Irvin MD [Primary Care Provider] - Additional Instructions: You have been evaluated in the ED for your dental pain. You have been provided with a script for Augmentin. Please take this medication as directed. (1 tab twice daily for 10 days or until gone). Aleve provides good pain relief for dental pain. Please take 1-2 tabs twice daily as needed for pain. You may use hot pack/ ice packs to the affected area as tolerated in 15-20 minute intervals. You will ultimately need to find a dentist to provide definitive management of your dental pain. Please return to the ED if your symptoms change or worsen.
== END 2019-01-25 21:49 | disposition home or self-care (01) ==
LOC: JD.ED 19:52
DX: K04.7 Periapical abscess without sinus (principal); F17.210 Nicotine dependence, cigarettes, uncomplicated; E11.9 Type 2 diabetes mellitus without complications; Z79.84 Long term (current) use of oral hypoglycemic drugs
CPT/HCPCS: 96372; 99282; A9270; J1885

== ENCOUNTER 2021-06-04 11:49 | Emergency (ER) | payer SELFPAY ==
[2021-06-04 12:08] VITALS: PULSE 90
[2021-06-04 12:12] VITALS: BP 133/78
--- NOTE | 2021-06-04 13:18 | EDM.PDOC ---
ED HPI GENERAL MEDICAL PROBLEM - General Chief Complaint: ENT Problem Stated Complaint: VAGINAL DISCHARGE/ITCHING/DENTAL COMPLAINT Time Seen by Provider: 06/04/21 12:23 Source of Information: Reports: Patient, RN Notes Reviewed - History of Present Illness INITIAL COMMENTS - FREE TEXT/NARRATIVE: 35 yr old female with dental pain L lower jaw that started a few days ago, worse today. No fever or chills. feels like mild swelling L lower jaw. Has had some mild vag. itching, slight discharge, wondering about possible yeast infection. 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 HOT PIPE GAUGER History: x 2 - d&c Musculoskeletal History: Reports: None Neurological History: Reports: None Psychiatric History: Reports: None Endocrine/Metabolic History: Reports: Diabetes, Gestational, Diabetes, Type II, Other (See Below) Other Endocrine/Metabolic History: 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 Hematologic History: Reports: None Immunologic History: Reports: None Oncologic (Cancer) History: Reports: None Dermatologic History: Reports: None - Past Surgical History Head Surgeries/Procedures: Reports: None Cardiovascular Surgical History: Reports: None Respiratory Surgical History: Reports: None GI Surgical History: Reports: Cholecystectomy Female Surgical History: Reports: Section, D&C Endocrine Surgical History: Reports: None Neurological Surgical History: Reports: None Musculoskeletal Surgical History: Reports: None Oncologic Surgical History: Reports: None Dermatological Surgical History: Reports: None Social & Family History - Family History Family Medical History: No Pertinent Family History - Tobacco Use Tobacco Use Status *Q: Current Every Day Tobacco User Years of Tobacco use: 15 Packs/Tins Daily: 1 - Caffeine Use Caffeine Use: Reports: Coffee, Soda - Recreational Drug Use Recreational Drug Use: No ED ROS ENT - Review of Systems Review Of Systems: See Below Constitutional: Denies: Fever, Chills HEENT: Reports: Other (L lower jaw pain) Respiratory: Reports: No Symptoms Cardiovascular: Reports: No Symptoms GI/Abdominal: Reports: No Symptoms Musculoskeletal: Reports: No Symptoms Skin: Reports: No Symptoms Neurological: Reports: No Symptoms ED EXAM, ENT - Physical Exam Exam: See Below General Appearance: Alert, No Apparent Distress Mouth/Throat: Other (Post molars L lower face is gone, premolars nontender, slight swelling base of gum, no drainage) Head: Facial Swelling (probable slight swelling L face) Neck: Supple. No: Lymphadenopathy (L), Lymphadenopathy (R) Respiratory/Chest: No Respiratory Distress, Chest Non-Tender Extremities: Normal Inspection, Normal Range of Motion Neurological: Alert, Oriented, No Motor/Sensory Deficits Skin: Warm, Dry, Normal Color Course - Vital Signs Last Recorded V/S: Last Vital Signs Temp 97.3 F 06/04/21 12:06 Pulse 90 06/04/21 12:06 Resp 16 06/04/21 12:06 BP 133/78 06/04/21 12:11 Pulse Ox 98 06/04/21 12:06 Departure - Departure Time of Disposition: 13:14 Disposition: Home, Self-Care 01 Clinical Impression: Pain, dental - Discharge Information Prescriptions: clindamycin HCL [Clindamycin HCl] 300 mg PO Q8HR #20 capsule Hydrocodone/Acetaminophen [Hydrocodone-Acetamin 5-325 mg] 1 each PO Q6HR PRN #10 tablet PRN Reason: Pain Referrals: Stefany Irvin MD [Primary Care Provider] - Forms: ED Department Discharge Additional Instructions: Clindamycin 300 mg 3 times daily for 1 week or until gone. Tylenol for mild to mdoerate pain or hydrocodone if needed for severe pain. Prescriptions have been sent to [facility] at the [facility]. You may also take ibuprofen or aleve 2 to 3 times daily for extra pain relief. See you dentist in about 3 to 4 days for recheck. Return to ED as needed. Sepsis Event Note (ED) - Evaluation Sepsis Screening Result: No Definite Risk - Focused Exam Vital Signs: Vital Signs Temp Pulse Resp BP Pulse Ox 06/04/21 12:11 133/78 06/04/21 12:06 97.3 F 90 16 150/94 H 98
== END 2021-06-04 13:30 | disposition home or self-care (01) ==
LOC: JD.ED 11:49
DX: K08.89 Other specified disorders of teeth and supporting structures (principal)
CPT/HCPCS: 99283

== ENCOUNTER 2021-08-15 09:58 | Emergency (ER) | payer SELFPAY ==
[2021-08-15] MEDS ORDERED: Ketorolac 30 MG/ML SDV IVPUSH ONE (11:14)
[2021-08-15] MEDS ORDERED: cefTRIAXone 2 GM in Sodium Chloride 0.9% 100 ML IV ONE (11:14)
[2021-08-15] MEDS ORDERED: Clindamycin Phosphate in D5W 900 MG in Premix Bag 1 BAG IV ONE ×2 (11:18)
[2021-08-15 11:59] VITALS: BP 123/80; PULSE 87
--- NOTE | 2021-08-15 12:03 | EDM.PDOC ---
ED HPI GENERAL MEDICAL PROBLEM - General Chief Complaint: ENT Problem Stated Complaint: DENTAL COMPLAINT Time Seen by Provider: 08/15/21 11:02 Source of Information: Reports: Patient, RN Notes Reviewed History Limitations: Reports: No Limitations - History of Present Illness INITIAL COMMENTS - FREE TEXT/NARRATIVE: Patient is a 35-year-old female presenting to the emergency department with complaints of pain and swelling to her left lower jaw. Reports symptoms began yesterday. Upon waking this morning they were worse, however it has improved at this point. She reports having pain in the same area proximally 1 month ago. She was treated with antibiotics and the symptoms resolved. States this tooth has been repaired in the past, prior to the incident in June, and she has not followed up with a dentist since. Denies any fever, chills, nausea, or vomiting. Has been using [id number] Tylenol and ibuprofen for pain. Last dose of Tylenol was this morning. She has not taken any ibuprofen today. 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 Other PATHOLOGY SPECIALIST History: x 2 - d&c Musculoskeletal History: Reports: None Neurological History: Reports: None Psychiatric History: Reports: None Endocrine/Metabolic History: Reports: Diabetes, Gestational, Diabetes, Type II, Other (See Below) Other Endocrine/Metabolic History: 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 Hematologic History: Reports: None Immunologic History: Reports: None Oncologic (Cancer) History: Reports: None Dermatologic History: Reports: None - Past Surgical History GI Surgical History: Reports: Cholecystectomy Female Surgical History: Reports: Section, D&C Social & Family History - Family History Family Medical History: No Pertinent Family History - Tobacco Use Tobacco Use Status *Q: Current Every Day Tobacco User Years of Tobacco use: 17 Packs/Tins Daily: 1 - Caffeine Use Caffeine Use: Reports: Coffee, Soda - Recreational Drug Use Recreational Drug Use: No ED ROS ENT - Review of Systems Review Of Systems: Comprehensive ROS is negative, except as noted in HPI. ED EXAM, ENT - Physical Exam Exam: See Below Exam Limited By: No Limitations General Appearance: Alert, WD/WN, No Apparent Distress Mouth/Throat: Normal Gums, Dental Pain (tooth 21. Mild swelling to associated jaw. No obvious abscess. No obvious caries or fractures.) Respiratory/Chest: No Respiratory Distress, Lungs Clear, Normal Breath Sounds, No Accessory Muscle Use, Chest Non-Tender Cardiovascular: Normal Peripheral Pulses, Regular Rate, Rhythm, No Edema, No Gallop, No JVD, No Murmur, No Rub Neurological: Alert, Oriented, CN II-XII Intact, Normal Cognition, Normal Gait, Normal Reflexes, No Motor/Sensory Deficits Psychiatric: Normal Affect, Normal Mood Skin: Warm, Dry, Intact, Normal Color, No Rash Course - Vital Signs Last Recorded V/S: Last Vital Signs Temp 96.8 F L 08/15/21 10:15 Pulse 87 08/15/21 11:56 Resp 16 08/15/21 11:56 BP 123/80 08/15/21 11:56 Pulse Ox 97 08/15/21 11:56 - Orders/Labs/Meds Meds: Medications Discontinued Medications Generic Name Dose Route Start Last Admin Trade Name Freq PRN Reason Stop Dose Admin Ceftriaxone Sodium 2 gm/ 100 mls @ 200 mls/hr 08/15/21 11:14 08/15/21 12:03 Sodium Chloride IV 08/15/21 11:43 Not Given ONETIME ONE Clindamycin Phosphate 900 mg/ 50 mls @ 100 mls/hr 08/15/21 11:18 08/15/21 11:43 Premix IV 08/15/21 11:47 100 mls/hr ONETIME ONE Administration Ketorolac Tromethamine 30 mg 08/15/21 11:14 08/15/21 11:42 Ketorolac 30 Mg/Ml Sdv IVPUSH 08/15/21 11:15 30 mg ONETIME ONE Administration - Re-Assessments/Exams Free Text/Narrative Re-Assessment/Exam: Patient is a 35-year-old female presenting to the emergency department with complaints of pain and swelling to her left lower jaw. Reports she had similar symptoms 1 month ago and was treated with antibiotics. Symptoms resolved, however returned. She has not seen her dentist since she had the episode 1 month ago. On exam, she has some mild swelling and tenderness to palpation to the tissues below tooth 21. There is no obvious caries or fractures. She is requesting IV antibiotics. I have ordered clindamycin 900 mg IV as well as Toradol 30 mg IV. 08/15/21 12:15 Patient's pain is improved. We will discharge her home with prescription for clindamycin and Naprosyn. Discussed possibility of Tylenol with codeine, however she states that this makes her nauseous. Recommend contacting her dentist and being seen as soon as possible. Discharge instructions as documented. Departure - Departure Time of Disposition: 12:15 Disposition: Home, Self-Care 01 Condition: Good Clinical Impression: Pain, dental - Discharge Information *PRESCRIPTION DRUG MONITORING PROGRAM REVIEWED*: Yes *COPY OF PRESCRIPTION DRUG MONITORING REPORT IN PATIENT EMA: No Prescriptions: Clindamycin HCl 300 mg PO TID 7 Days #21 capsule Naproxen [Naprosyn] 500 mg PO Q12HR PRN 5 Days #10 tab PRN Reason: Pain Instructions: Dental Pain Referrals: Stefany Irvin MD [Primary Care Provider] - Forms: ED Department Discharge Additional Instructions: You were seen in the emergency department today for pain and swelling to your left lower jaw. While in the ER, you received IV antibiotics and Toradol for pain. Prescription has been sent for clindamycin which is an antibiotic. Take this as prescribed. Prescription has been sent for Naprosyn. Use this as prescribed for pain. For pain not relieved by this, you may also use Tylenol. Recommend intermittent icing of the area. Contact Dr. Mckeon to set up follow-up as soon as possible. Return to ER as needed. Sepsis Event Note (ED) - Focused Exam Vital Signs: Vital Signs Pulse Resp BP Pulse Ox 08/15/21 11:56 87 16 123/80 97
== END 2021-08-15 12:50 | disposition home or self-care (01) ==
LOC: JD.ED 09:58
DX: K08.89 Other specified disorders of teeth and supporting structures (principal); Z72.0 Tobacco use
CPT/HCPCS: 96365; 96375; 99283; 99283-25; J1885; J3490

== ENCOUNTER 2021-08-17 11:49 | Emergency (ER) | payer SELFPAY ==
[2021-08-17 12:01] VITALS: BP 129/85; PULSE 88
--- NOTE | 2021-08-17 12:39 | EDM.PDOC ---
ED HPI GENERAL MEDICAL PROBLEM - General Chief Complaint: General Stated Complaint: TOOTH PAIN Time Seen by Provider: 08/17/21 12:10 Source of Information: Reports: Patient, RN Notes Reviewed History Limitations: Reports: No Limitations - History of Present Illness INITIAL COMMENTS - FREE TEXT/NARRATIVE: Patient is a 35-year-old female who presents to the ER again for her dental pain. She was seen in this ER on Sunday by different provider, was given IV clindamycin, started on oral clindamycin and Naprosyn for ongoing management. Patient states she is been taking the antibiotic as previously prescribed however the swelling has continued to get worse, and she is having increasing pain. She states that the Naprosyn does seem to work to take the edge off. She is concerned again because of the swelling to her left lower jaw, that the infection might be worsening and that the antibiotics are not working. She has not had any fevers or chills, cough or shortness breath, any sort of nausea/vomiting/diarrhea. Further denying any sort of sore throat. There is a slight amount of tenderness to the midline portion of her mandible Oral/Mouth Pain Score (Numeric/FACES): 9 - Related Data Allergies Allergy/AdvReac Type Severity Reaction Status Date / Time No Known Allergies Allergy Verified 08/17/21 12:01 Home Meds: Home Meds Naproxen [Naprosyn] 500 mg PO Q12HR PRN 5 Days #10 tab 08/15/21 [Rx] Amoxicillin/Clavulanate K [Augmentin 875-125 MG] 1 tab PO BID #14 tablet 08/17/21 [Rx] Hydrocodone/Acetaminophen [HYDROcodone-Acetaminophen 5-325 MG] 1 tab PO Q6H PRN #8 tablet 08/17/21 [Rx] Past Medical History HEENT History: Reports: Impaired Vision Gastrointestinal History: Reports: Hemorrhoids 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 - d&c Endocrine/Metabolic History: Reports: Diabetes, Gestational, Diabetes, Type II, Other (See Below) Other Endocrine/Metabolic History: 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 ED EXAM, GENERAL - Physical Exam Exam: See Below Exam Limited By: No Limitations General Appearance: Alert, WD/WN, No Apparent Distress Throat/Mouth: Normal Inspection, Normal Lips, Normal Gums, Normal Oropharynx, No Airway Compromise, Other (dental pain to back L molar) Neck: Other (there is a very modest amount of swelling noted to the midline mandible, just under the left side of her chin.) Respiratory/Chest: No Respiratory Distress, Lungs Clear, Normal Breath Sounds, No Accessory Muscle Use, Chest Non-Tender Cardiovascular: Normal Peripheral Pulses, Regular Rate, Rhythm Extremities: Normal Inspection, Normal Capillary Refill Neurological: Alert, Oriented, Normal Cognition, No Motor/Sensory Deficits Psychiatric: Normal Affect, Normal Mood Skin Exam: Warm, Dry, Intact, Normal Color, No Rash Course - Vital Signs Last Recorded V/S: Last Vital Signs Temp 97.1 F 08/17/21 11:59 Pulse 88 08/17/21 11:59 Resp 16 08/17/21 11:59 BP 129/85 08/17/21 11:59 Pulse Ox 96 08/17/21 11:59 - Re-Assessments/Exams Free Text/Narrative Re-Assessment/Exam: 08/17/21 12:42 Patient presents to the ER for evaluation of her ongoing dental discomfort. For today's purposes we will go ahead and switch her antibiotics to Augmentin and have her stop the clindamycin, give her just a few tablets of hydrocodone for pain not relieved by Naprosyn alone. Patient states that she is going to follow-up with dentistry to have the affected tooth pulled when appropriate. Departure - Departure Time of Disposition: 12:36 Disposition: Home, Self-Care 01 Condition: Good Clinical Impression: Pain, dental - Discharge Information *PRESCRIPTION DRUG MONITORING PROGRAM REVIEWED*: Yes *COPY OF PRESCRIPTION DRUG MONITORING REPORT IN PATIENT EMA: No Prescriptions: Amoxicillin/Clavulanate K [Augmentin 875-125 MG] 1 tab PO BID #14 tablet Hydrocodone/Acetaminophen [HYDROcodone-Acetaminophen 5-325 MG] 1 tab PO Q6H PRN #8 tablet PRN Reason: Pain Instructions: Dental Pain, [id number] Referrals: Stefany Irvin MD [Primary Care Provider] - Forms: ED Department Discharge Additional Instructions: You have been evaluated in the ED for your dental pain. You have been provided with a script for Augmentin. Please take this medication as directed. (1 tab twice daily for 7 days or until gone). Please note this antibiotic can take up to 48 hours to provide coverage. If you do not notice an improvement in the swelling within 3 days time I recommend you seek care for r eevaluation for change in antibiotics. This antibiotic can cause diarrhea, recommend that you start a probiotic while taking this medication. Discontinue the use of clindamycin, as your antibiotic has been changed. You may take your first dose of Augmentin as you pick it up, and take another 1 again tonight and then resume taking it in the morning and at night tomorrow. You were given a prescription for Naprosyn the other day, Please take 1 tab every 12 hours for pain relief. You were given a prescription for a strong pain medication, hydrocodone/acetaminophen 5/325 mg, please take 1 tab every 6 hours as needed for pain not relieved by Naprosyn alone. Please note this medication does contain Tylenol in it, so do not take more than 4000 mg in a 24-hour time span. These medications can be addictive, so please take as few as possible to achieve adequate pain control. These meds can also be quite constipating, recommend that you increase your oral fluid intake and take a stool softener like MiraLAX while taking these medications. Do not drive while taking this medication. These medications were electronically sent to the [facility] located on [address]. You may use hot pack/ ice packs to the affected area as tolerated in 15-20 minute intervals. You will ultimately need to find a dentist to provide definitive management of your dental pain. The [facility] in [place], [place], , is a clinic that has been known to take people that do not have dental insurance, and may provide payment plans. You might want to check with this provider, regarding your dental pain. Please return to the ED if your symptoms change or worsen. Sepsis Event Note (ED) - Evaluation Sepsis Screening Result: No Definite Risk - Focused Exam Vital Signs: Vital Signs Temp Pulse Resp BP Pulse Ox 08/17/21 11:59 97.1 F 88 16 129/85 96
== END 2021-08-17 12:50 | disposition home or self-care (01) ==
LOC: JD.ED 11:49
DX: K08.89 Other specified disorders of teeth and supporting structures (principal); Z72.0 Tobacco use
CPT/HCPCS: 99282

== ENCOUNTER 2023-01-01 13:56 | Emergency (ER) | payer BC ==
[2023-01-01] MEDS ORDERED: Acetaminophen/HYDROcodone 325-5 MG Tab PO ONE (14:40)
[2023-01-01] MEDS ORDERED: Lidocaine 1% with EPINEPHrine 1:100,000 10 ML MDV INJECT ONE (16:05)
[2023-01-01] MEDS ORDERED: Lidocaine/EPINEPHrine/Tetracaine Soln 1 ML TOP ONE (16:05)
[2023-01-01] MEDS ORDERED: HYDROmorphone 1 MG/ML Syringe IM ONE (16:28)
[2023-01-01] MEDS ORDERED: Lidocaine 1% 10 ML MDV INJECT ONE (16:28)
[2023-01-01 18:20] VITALS: BP 129/89; PULSE 85
== END 2023-01-01 18:05 | disposition home or self-care (01) ==
LOC: JD.ED 13:56
DX: L02.214 Cutaneous abscess of groin (principal); E11.9 Type 2 diabetes mellitus without complications; F17.210 Nicotine dependence, cigarettes, uncomplicated
CPT/HCPCS: 10060; 36415; 85025; 86140; 87070; 87075; 87205; 96372; 99283; A9270; J1170; 99284; J3490

== ENCOUNTER 2024-12-21 17:20 | Emergency (ER) | payer SELFPAY ==
[2024-12-21 17:47] VITALS: BP 121/69; PULSE 94
[2024-12-21] MEDS: Lidocaine/Epineph/Tetracaine 3 ML Syringe TOP ONE (18:53)
[2024-12-21] MEDS: Lidocaine 1% 10 ML MDV INJECT ONE (19:17)
[2024-12-21] MEDS: Cephalexin 500 MG Cap PO ONE (19:54)
== END 2024-12-21 20:00 | disposition home or self-care (01) ==
LOC: JD.ED 17:20
DX: L02.412 Cutaneous abscess of left axilla (principal); E11.9 Type 2 diabetes mellitus without complications; F17.210 Nicotine dependence, cigarettes, uncomplicated; Z90.49 Acquired absence of other specified parts of digestive tract; Z79.899 Other long term (current) drug therapy
CPT/HCPCS: 10060; 99282; A9270; 99283; J3490